=== PATIENT | male | born 1965 | race Caucasian/White ===

== ENCOUNTER 2022-01-22 10:18 | Emergency (ER) | payer MEDICARE, OTHER ==
[2022-01-22 10:36] VITALS: BP 185/100; PULSE 76; O2SAT 93
[2022-01-22] MEDS ORDERED: SILVADENE 50 GM TP ONE ×2 (10:36→10:44)
[2022-01-22] MEDS ORDERED: PERCOCET TABLET 5/325MG PO ONE (10:40)
[2022-01-22] MEDS ORDERED: PERCOCET TABLET 5/325MG ONE (10:42)
--- NOTE | 2022-01-22 10:45 | ERPHSYRPT ---
- History of Present Illness Time Seen by Provider: 01/22/22 10:20 Source: patient Exam Limitations: no limitations Patient Subjective Stated Complaint: C/O burn to right hand. States he grabbed a hot curling iron at home when he accidently knocked it off of the counter. Triage Nursing Assessment: Patient alert and oriented and answering questions appropriately. Hand wrapped in a clean dressing upon arrival. Hand is red with no blistering noted at this time. Physician History: 56-year-old right-handed dominant male presented to the ER after he accidentally picked up a heart curling iron at home. Complaining of erythema diffusely across palmar aspect of hand with moderate to severe sharp pain, more with movements, palpation, mild improvement since applied Silvadene which she had at home. No blistering noticed. Up-to-date with tetanus. Timing/Duration: today Quality: painful Severity: moderate, severe Location: hands Possible Causes: other Associated Symptoms: rash Allergies/Adverse Reactions: No Known Drug Allergies Allergy (Verified 01/22/22 10:22) Home Medications: Metformin HCl 500 mg [Glucophage 500 MG] 1,000 mg PO BID 01/22/22 [History] Hx Tetanus, Diphtheria Vaccination/Date Given: Yes Hx Influenza Vaccination/Date Given: No Hx Pneumococcal Vaccination/Date Given: No Immunizations Up to Date: Yes Travel Risk - International Travel Have you traveled outside of the country in past 3 weeks: No - Coronavirus Screening Are you exhibiting any of the following symptoms?: No Close contact with a COVID-19 positive Pt in past 14-21 Days: No - Vaccine Status Have you recieved a Covid-19 vaccination: Yes Rn Field: Moderna - Vaccination Dates Date of 2cond Vaccination (if applicable): 2020 - Review of Systems Constitutional: No Symptoms Eyes: No Symptoms Ears, Nose, & Throat: Nose Pain Respiratory: No Symptoms Cardiac: No Symptoms Musculoskeletal: Injury Skin: Skin Lesions Neurological: No Symptoms Endocrine: No Symptoms Hematologic/Lymphatic: No Symptoms - Past Medical History Pertinent Past Medical History: Yes Neurological History: Seizures, Stroke ENT History: Cataracts Cardiac History: Aneurysm, High Cholesterol, Hypertension Respiratory History: Sleep Apnea Endocrine Medical History: Diabetes Type II, Liver Disease Musculoskeletal History: Arthritis, Fractures GI Medical History: Colorectal Cancer, GERD, Gallbladder Disease, Hernia, Polyps History: Renal Disease Psycho-Social History: No Pertinent History Male Reproductive Disorders: No Pertinent History Other Medical History: Cyst on liver - Past Surgical History Past Surgical History: Yes Neuro Surgical History: No Pertinent History Cardiac: No Pertinent History Respiratory: No Pertinent History Gastrointestinal: Cholecystectomy, Colon Resection, Hernia Repair Genitourinary: No Pertinent History Musculoskeletal: No Pertinent History Male Surgical History: No Pertinent History Other Surgical History: Carpal tunnel, back surgery - Social History Smoking Status: Never smoker Exposure to second hand smoke: No Drug Use: none Patient Lives Alone: No - Nursing Vital Signs Nursing Vital Signs: Initial Vital Signs Temperature 97.8 F 01/22/22 10:23 Pulse Rate 76 01/22/22 10:23 Respiratory Rate 18 01/22/22 10:23 Blood Pressure 185/100 01/22/22 10:23 O2 Sat by Pulse Oximetry 93 L 01/22/22 10:23 Pain Scale Pain Intensity 5 - Physical Exam General Appearance: no apparent distress, alert Eye Exam: PERRL/EOMI Neck Exam: normal inspection, full range of motion Respiratory Exam: normal breath sounds, lungs clear Cardiovascular Exam: regular rate/rhythm, normal heart sounds Extremity Exam: other (Diffuse erythema right palmar aspect of hand at fingers without blistering. Tenderness to palpation. Reproducible pain with movements of finger and hand. Intact range of motion of fingers.) Neurologic Exam: alert, oriented x 3, cooperative Skin Exam: normal color SpO2 Interpretation: normal SpO2: 93 O2 Delivery: Room Air Ordered Tests: Medication Summary Discontinued Medications Generic Name Dose Route Start Last Admin Trade Name Freq PRN Reason Stop Dose Admin Oxycodone/Acetaminophen 1 tab 01/22/22 10:40 01/22/22 10:42 Oxycodone Hcl/Apap 5 Mg/325 Mg Tablet PO 01/22/22 10:41 1 tab STAT ONE Administration Oxycodone/Acetaminophen Confirm 01/22/22 10:42 Oxycodone Hcl/Apap 5 Mg/325 Mg Tablet Administered 01/22/22 10:43 Dose 1 tab .ROUTE .STK-MED ONE Silver Sulfadiazine Confirm 01/22/22 10:36 Silver Sulfadiazine 50 Gm Tube Administered 01/22/22 10:37 Dose 50 gm TP .STK-MED ONE Silver Sulfadiazine 50 gm 01/22/22 10:44 01/22/22 10:45 Silver Sulfadiazine 50 Gm Tube TP 01/22/22 10:45 50 gm STAT ONE Administration - Progress Progress: pain not gone completely Progress Note: 01/22/22 10:41 Has second-degree burn. Recommended continue with Silvadene and given pain medication for symptomatic relief. Outpatient primary care and hand surgery follow-up. Counseled pt/family regarding: diagnosis, need for follow-up - Departure Departure Disposition: Home Clinical Impression: Burn, hands, second degree Condition: Stable Critical Care Time: No Referrals: CHRIS MATTSON MD [NON-STAFF PHY W/O PRIVILEGES] - Follow up/PCP as directed (Call tomorrow for appointment for reevaluation) Instructions: Skin Mitchell (DC) Additional Instructions: Keep it clean, pain medications as needed, follow-up with hand surgery/primary care for reevaluation in 1 to 2 days. Return to ER for increasing pain swelling, difficulty movements of fingers holographic. Intermittent ice application. Prescriptions: Hydrocodone/Acetaminophen [Hydrocodone-Acetamin 5-325 mg] 1 tab PO Q6HPRN PRN 3 Days #12 tablet MDD 4 PRN Reason: Pain Hydrocodone/Acetaminophen [Hydrocodone-Acetamin 5-325 mg] 1 tab PO Q6HPRN PRN 3 Days #12 tablet MDD 4 PRN Reason: Pain
== END 2022-01-22 11:08 | disposition home or self-care (01) ==
LOC: ED 10:18
DX: T23.251A Burn of second degree of right palm, initial encounter (principal); W29.2XXA Contact with other powered household machinery, initial encounter; E78.5 Hyperlipidemia, unspecified; I10 Essential (primary) hypertension; E11.9 Type 2 diabetes mellitus without complications; Z79.84 Long term (current) use of oral hypoglycemic drugs; Z79.891 Long term (current) use of opiate analgesic
CPT/HCPCS: 99283; A9270-GY

== ENCOUNTER 2023-03-03 17:04 | Emergency (ER) | payer MEDICARE, OTHER ==
[2023-03-03] MEDS ORDERED: Sodium Chloride 0.9% 1000 ML 1,000 ML IV STA (17:06)
[2023-03-03 17:16] VITALS: TEMP 97.6
[2023-03-03] MEDS ORDERED: Sodium Chloride 0.9% 1000 ML 1,000 ML ONE (17:22)
[2023-03-03 17:23] LABS: Absolute Neutrophil Ct (ANC) 5.65 x10^3/uL (1.4-6.9); BASOPHIL % 0.4 % (0.0-0.4); Basophil (Absolute #) 0.04 x10^3/uL (0-0.4); Eosinophil % 2.6 % (0.00-5.0); Eosinophil (Absolute #) 0.24 x10^3/uL (0-0.5); Hematocrit 46.1 % (42-50); Hemoglobin 15.4 g/dL (12.5-18.0); IMMATURE GRAN # 0.03 x10^3u/L (0.00-0.03); IMMATURE GRAN % 0.3 % (0.00-0.4); Lymphocyte (Absolute #) 2.31 x10^3/uL (1.0-4.6); Lymphocytes % 25.1 % (24.0-44.0); Mean Cell Volume 89.9 fL (78-100); Mean Corpuscular Hgb Concent. 33.4 g/dL (32-36); Mean Platelet Volume 8.9 fL (7.5-11.0); Monocyte (Absolute #) 0.95 x10^3/uL (0.0-1.3); Monocytes % 10.3 % (0.0-12.0); Neutrophil % 61.3 % (36.0-66.0); Platelet Count 172 x10^3/uL (150-450); Red Blood Count 5.13 x10^6/uL (4.1-5.6); Red Cell Distribution Width 13.4 % (11.5-14.0); White Blood Count 9.2 x10^3/uL (4.0-10.5)
[2023-03-03 17:32] LABS: Erythrocyte Sedimentation Rate 6 mm/hr (0-15)
[2023-03-03 17:48] LABS: ALBUMIN 4.1 g/dL (3.5-5.0); ALKALINE PHOSPHATASE 52 U/L (38-126); ANION GAP 14.5 MEQ/L (5-15); BLOOD UREA NITROGEN 12 mg/dL (9-20); CHLORIDE 100 mmol/L (98-107); Calcium 9.1 mg/dL (8.4-10.2); Carbon Dioxide 30 mmol/L (22-30); Creatinine 1 1.03 mg/dL (0.66-1.25); EST GLOMERULAR FILTRATION RATE > 60.0 ML/MIN; Glucose 161 mg/dL (74-106); Potassium 4.2 mmol/L (3.5-5.1); SGOT/AST 34 U/L (17-59); SGPT/ALT 29 U/L (0-50); SODIUM 140 mmol/L (137-145); TROPONIN < 0.012 ng/mL (0.000-0.034); Total Protein 7.2 g/dL (6.3-8.2)
--- NOTE | 2023-03-03 18:21 | ERPHSYRPT ---
- History of Present Illness Time Seen by Provider: 03/03/23 18:18 Source: patient Exam Limitations: no limitations Patient Subjective Stated Complaint: Pt states that he woke up with pain to the upper left of his shoulder blade in his back and the pain is now in his left shoulder and going down his arm Triage Nursing Assessment: Pt was brought to the ER by his , vitals wnl, rates pain as a 10/10, unable to raise his left arm, denies injury or fall, pulses normal, skin n/w/d, no difficulties with breathing, denies chest pain, denies N&V Physician History: Pt states that he woke up with pain to the upper left of his shoulder blade in his back and the pain is now in his left shoulder and going down his arm denies injury or fall, pulses normal, no difficulties with breathing, denies chest pain, denies N&V Timing/Duration: today Severity: moderate Associated Symptoms: denies symptoms Allergies/Adverse Reactions: azithromycin Allergy (Verified 03/03/23 17:12) Home Medications: Metformin HCl 500 mg [Glucophage 500 MG] 1,000 mg PO BID 01/22/22 [History] Ezetimibe 10 mg [Zetia 10 MG] 10 mg PO DAILY 03/03/23 [History] Metoprolol Tartrate 50 mg [Lopressor 50 MG] 50 mg PO BID 03/03/23 [History] Reno-3 Fatty Acids [Reno-3] 1,000 mg PO DAILY 03/03/23 [History] PANTOPRAZOLE 40 mg Tablet [Protonix 40MG Tablet] 40 mg PO QAM 03/03/23 [History] Rosuvastatin Calcium 5 mg PO DAILY 03/03/23 [History] Semaglutide [Ozempic] 0.5 mg SQ WEEKLY 03/03/23 [History] levETIRAcetam [Levetiracetam] 1,500 mg PO BID 03/03/23 [History] Hx Tetanus, Diphtheria Vaccination/Date Given: Yes Hx Influenza Vaccination/Date Given: No Hx Pneumococcal Vaccination/Date Given: No Travel Risk - International Travel Have you traveled outside of the country in past 3 weeks: No - Coronavirus Screening Are you exhibiting any of the following symptoms?: No Close contact with a COVID-19 positive Pt in past 14-21 Days: No - Vaccine Status Have you recieved a Covid-19 vaccination: Yes Chyron Operator: Moderna - Vaccination Dates Date of 2cond Vaccination (if applicable): 2020 - Review of Systems Constitutional: No Fever, No Chills Eyes: No Symptoms Ears, Nose, & Throat: No Symptoms Respiratory: No Cough, No Dyspnea Cardiac: No Chest Pain, No Edema, No Syncope Abdominal/Gastrointestinal: No Abdominal Pain, No Nausea, No Vomiting, No Diarrhea Genitourinary Symptoms: No Dysuria Musculoskeletal: Joint Pain (left shoulder), No Back Pain, No Neck Pain, No Fall Skin: No Rash Neurological: No Dizziness, No Focal Weakness, No Sensory Changes Psychological: No Symptoms Endocrine: No Symptoms All Other Systems: Reviewed and Negative - Past Medical History Pertinent Past Medical History: Yes Neurological History: Seizures, Stroke ENT History: Cataracts Cardiac History: Aneurysm, High Cholesterol, Hypertension Respiratory History: Sleep Apnea Endocrine Medical History: Diabetes Type II, Liver Disease Musculoskeletal History: Arthritis, Fractures GI Medical History: Colorectal Cancer, GERD, Gallbladder Disease, Hernia, Polyps History: Renal Disease Psycho-Social History: No Pertinent History Male Reproductive Disorders: No Pertinent History Other Medical History: Cyst on liver - Past Surgical History Past Surgical History: Yes Neuro Surgical History: No Pertinent History Cardiac: No Pertinent History Respiratory: No Pertinent History Gastrointestinal: Cholecystectomy, Colon Resection, Hernia Repair Genitourinary: No Pertinent History Musculoskeletal: No Pertinent History Male Surgical History: No Pertinent History Other Surgical History: Carpal tunnel, back surgery - Social History Smoking Status: Never smoker Exposure to second hand smoke: No Drug Use: none Patient Lives Alone: No - Nursing Vital Signs Nursing Vital Signs: Initial Vital Signs Temperature 97.6 F 03/03/23 17:06 Pulse Rate 80 03/03/23 17:06 Respiratory Rate 17 03/03/23 17:06 Blood Pressure 124/72 03/03/23 17:06 O2 Sat by Pulse Oximetry 97 03/03/23 17:06 Pain Scale Pain Intensity 10 - Physical Exam General Appearance: no apparent distress, alert Eye Exam: PERRL/EOMI, eyes nml inspection Ears, Nose, Throat Exam: normal ENT inspection, TMs normal, pharynx normal, moist mucous membranes Neck Exam: normal inspection, non-tender, supple, full range of motion Respiratory Exam: normal breath sounds, lungs clear, No respiratory distress Cardiovascular Exam: regular rate/rhythm, normal heart sounds, normal peripheral pulses Gastrointestinal/Abdomen Exam: soft, normal bowel sounds, No tenderness, No mass Rectal Exam: deferred Back Exam: normal inspection, normal range of motion, No CVA tenderness, No vertebral tenderness Extremity Exam: normal inspection, normal range of motion, pelvis stable, limited range of motion (left shoulder), No inflammation, No tenderness Neurologic Exam: alert, oriented x 3, cooperative, normal mood/affect, nml cerebellar function, nml station & gait, sensation nml, No motor deficits Skin Exam: normal color, warm, dry, No rash Lymphatic Exam: No adenopathy SpO2: 97 - Course Nursing assessment & vital signs reviewed: Yes EKG Interpreted by Me: Sinus Rhythm - Radiology Exams Chest X-ray Interpretation: Reviewed by me, Negative, No Pneumonia Shoulder X-ray Interpretation: Reviewed by me, Negative, No Fracture, No Subluxation Ordered Tests: Active Orders 24 hr Category Date Time Status EKG-ER Only STAT Care 03/03/23 17:06 Active CHEST 1 VIEW (PORTABLE) Stat Exams 03/03/23 17:07 Taken SHOULDER Stat Exams 03/03/23 17:09 Taken CBC W DIFF Stat Lab 03/03/23 17:20 Completed CMP Stat Lab 03/03/23 17:20 Completed Erythrocyte Sedimentation Rate Stat Lab 03/03/23 17:20 Completed TROPONIN Stat Lab 03/03/23 17:20 Completed Medication Summary Discontinued Medications Generic Name Dose Route Start Last Admin Trade Name Laiq PRN Reason Stop Dose Admin Diphenhydramine HCl 25 mg 03/03/23 18:43 Diphenhydramine Hcl 50 Mg/Ml Vial IM 03/03/23 18:44 STAT ONE Diphenhydramine HCl Confirm 03/03/23 18:55 Diphenhydramine Hcl 50 Mg/Ml Vial Administered 03/03/23 18:56 Dose 50 mg .ROUTE .STK-MED ONE Sodium Chloride 1,000 mls @ 999 mls/hr 03/03/23 17:06 03/03/23 18:29 Sodium Chloride 0.9% 1000 Ml IV 03/03/23 18:06 Infused .Q1H1M STA Infusion Sodium Chloride Confirm 03/03/23 17:22 Sodium Chloride 0.9% 1000 Ml Administered 03/03/23 17:23 Dose 1,000 mls @ ud .ROUTE .STK-MED ONE Morphine Sulfate 4 mg 03/03/23 18:43 Morphine Sulfate 4 Mg/Ml Injection IV 03/03/23 18:44 STAT ONE Morphine Sulfate Confirm 03/03/23 18:55 Morphine Sulfate 4 Mg/Ml Injection Administered 03/03/23 18:56 Dose 4 mg .ROUTE .STK-MED ONE Lab/Rad Data: Laboratory Result Diagrams 03/03/23 17:20 03/03/23 17:20 Laboratory Results 03/03/23 03/03/23 Range/Units 17:20 17:20 WBC 9.2 (4.0-10.5) x10^3/uL RBC 5.13 (4.1-5.6) x10^6/uL Hgb 15.4 (12.5-18.0) g/dL Hct 46.1 (42-50) % MCV 89.9 (78-100) fL MCH 30.0 (26-32) pg MCHC 33.4 (32-36) g/dL RDW 13.4 (11.5-14.0) % Plt Count 172 (150-450) x10^3/uL MPV 8.9 (7.5-11.0) fL Gran % 61.3 (36.0-66.0) % Immature Gran % (Auto) 0.3 (0.00-0.4) % Nucleat RBC Rel Count 0.0 (0.00-0.1) % Eos # (Auto) 0.24 (0-0.5) x10^3/uL Immature Gran # (Auto) 0.03 (0.00-0.03) x10^3u/L Absolute Lymphs (auto) 2.31 (1.0-4.6) x10^3/uL Absolute Monos (auto) 0.95 (0.0-1.3) x10^3/uL Absolute Nucleated RBC 0.00 (0.00-0.01) x10^3u/L Lymphocytes % 25.1 (24.0-44.0) % Monocytes % 10.3 (0.0-12.0) % Eosinophils % 2.6 (0.00-5.0) % Basophils % 0.4 (0.0-0.4) % Absolute Granulocytes 5.65 (1.4-6.9) x10^3/uL Basophils # 0.04 (0-0.4) x10^3/uL ESR 6 (0-15) mm/hr Sodium 140 (137-145) mmol/L Potassium 4.2 (3.5-5.1) mmol/L Chloride 100 (98-107) mmol/L Carbon Dioxide 30 (22-30) mmol/L Anion Gap 14.5 (5-15) MEQ/L BUN 12 (9-20) mg/dL Creatinine 1.03 (0.66-1.25) mg/dL Estimated GFR > 60.0 ML/MIN Glucose 161 H (74-106) mg/dL Calcium 9.1 (8.4-10.2) mg/dL Total Bilirubin 0.80 (0.2-1.3) mg/dL AST 34 (17-59) U/L ALT 29 (0-50) U/L Alkaline Phosphatase 52 (38-126) U/L Troponin I < 0.012 (0.000-0.034) ng/mL Serum Total Protein 7.2 (6.3-8.2) g/dL Albumin 4.1 (3.5-5.0) g/dL - Progress Progress: improved, pain not gone completely Counseled pt/family regarding: lab results, diagnosis, need for follow-up, rad results Medical Desision Making - Diagnostic Testing Diagnostic test were ordered, analyzed, and reviewed by me: Yes Radiological Interpretation: Reviewed by me - Risk of complications Low Risk: Low risk of morbidity from additional dx testing or treatment - Departure Departure Disposition: Home Clinical Impression: Left anterior shoulder pain Condition: Stable Critical Care Time: No Referrals: DAVID HAN MD [Primary Care Provider] - [facility]Orth[facility] M-F [id number] Instructions: Shoulder Sprain, Frozen Shoulder (DC) Additional Instructions: Discharge/Care Plan RADHADANIEL Ilia was seen on 03/03/23 in the Emergency Room. The patient was counseled regarding Diagnosis,Lab results, Imaging studies, need for follow up and when to return to the Emergency Room. Prescriptions given: Discharge Note I have spoken with the patient and/or caregivers. I have explained the patient's condition, diagnosis and treatment plan based on the information available to me at this time. I have answered the patient's and/or caregiver's questions and addressed any concerns. The patient and/or caregivers have as good understanding of the patient's diagnosis, condition and treatment plan as can be expected at this point. The vital signs have been stable. The patient's condition is stable and appropriate for discharge from the emergency department. The patient will pursue further outpatient evaluation with the primary care physician or other designated or consulting physician as outlined in the discharge instructions. The patient and/or caregivers are agreeable to this plan of care and follow-up instructions have been explained in detail. The patient and/or caregivers have received these instruction. The patient/and or caregivers are aware that any significant change in condition or worsening of symptoms should prompt an immediate return to this or the closest emergency department or call 911. DANIEL GARCIA was seen on 03/03/23 n the Emergency Room. At that time you were treated for an emergent condition, during your visit Laboratory, Radiology and/or other procedures may have been ordered. It is very important that you follow-up with your Primary Care Physician DAVID HAN within the next 24-48 hours to review your Emergency Room visit and the final results of testing that was ordered. Some test results such as Urine Cultures, Blood Cultures, and other cultures if ordered will not be finalized for 24-48 hours. If you do not have a Primary Care Provider please call the medical records department at [phone] ext [phone] to obtain a copy of your results or you may sign into our patient portal to obtain these results by visiting us @ [email or web address] and completing the following steps: 1. Click on the Patient Portal link 2. Click the Patient Self Enrollment Link to complete the enrollment form and entering your 3. Once the enrollment form is completed you will receive an email with a tem porary ID and password at the email address you provided. 4. Next choose a user name and password. Your user name must be at least 4 characters long and your password must be at least 4 characters long. 5. Choose a security question from the list and provide your answer to the question. If you already have signed into the Health Portal you may access your Health Care Information 19/02 by the following steps: 1. Login to our website @ [email or web address] 2. Enter your original user name and password. FAQS The [facility] Health Portal is an online tool that contains your Lab Results, Radiology Reports, Visit History, Discharge Instructions and Health Summary Lab and Radiology Results will not be available for 72 hours on the portal. The Portal is a secure site, passwords are encryted and URLs are re-written so they cannot be copied and pasted. You and authorized family members are the only ones who can access your Portal. Also there is a timeout feature that protects your information if you leave the Portal page open. If you have technical difficulty please use the Contact Us link on the page this will allow you to submit any questions you have regarding the Portal or you may contact the Medical Record Department at [phone] ext [phone]. Prescriptions: Indomethacin 25 mg [Indocin 25 MG] 25 mg PO TID #15 cap
[2023-03-03] MEDS ORDERED: MORPHINE SULFATE 4 MG INJ IV ONE (18:43)
[2023-03-03] MEDS ORDERED: BENADRYL 50 MG/ML IM ONE (18:43)
[2023-03-03] MEDS ORDERED: MORPHINE SULFATE 4 MG INJ ONE (18:55)
[2023-03-03] MEDS ORDERED: BENADRYL 50 MG/ML ONE (18:55)
[2023-03-03 19:37] VITALS: BP 125/80; PULSE 70; RESP 18; O2SAT 96
--- NOTE | 2023-03-03 22:00 | XRAY ---
Indication: Chest pain. Comparison: None Portal chest demonstrates minimal bibasilar discoid atelectasis/scarring. Remaining heart and lungs unremarkable. Bony thorax intact with mild degenerative changes.
--- NOTE | 2023-03-03 22:02 | XRAY ---
Indication: Pain. No known injury. Comparison: None 3 portable views left shoulder demonstrates moderate AC degenerative arthropathy. High riding humeral head commonly seen with rotator cuff tear. No other bony, articular, or soft tissue abnormalities. Chest reported separately.
== END 2023-03-03 19:36 | disposition home or self-care (01) ==
LOC: ED 17:04
DX: M25.512 Pain in left shoulder (principal); M54.6 Pain in thoracic spine; E78.5 Hyperlipidemia, unspecified; I10 Essential (primary) hypertension; E11.9 Type 2 diabetes mellitus without complications; Z79.84 Long term (current) use of oral hypoglycemic drugs; Z79.85 Long-term (current) use of injectable non-insulin antidiabetic drugs; Z79.899 Other long term (current) drug therapy
CPT/HCPCS: 36415; 71045; 73030; 80053; 84484; 85025; 85652; 93005; 96374; 99284; J1200; J2270